=== PATIENT | female | born 1995 | race Caucasian/White ===

== ENCOUNTER 2017-07-28 05:58 | Inpatient (IN) | payer MEDICAID, OTHER ==
--- NOTE | 2017-07-27 20:53 | P.HPOB ---
History of Present Illness H&P Date: 07/27/17 Chief Complaint: Induction of labor This is a 21-year-old female 1 para 0 with an estimated date of confinement of 07/28/2017, estimated gestational age of 40-0/7 weeks, who presents to labor and delivery for induction of labor. She admits to good movement. She has been feeling irregular pressure and contractions. course has been complicated by some depression/anger symptoms. She was encouraged to see a counselor but did not do this yet. labs: History of chlamydia treated in December 2016. Test of cure-negative. Gonorrhea-negative HIV-nonreactive Toxoplasma-negative RPR-nonreactive Hepatitis B surface antigen-negative Rubella-immune Blood type-A+ Antibody screen-negative Random glucose-76 Hemoglobin-11.3 Obstetrical ultrasound-normal anatomy One hour Glucola-89 Group B streptococcus-negative Review of Systems Constitutional: Denies chills, Denies fever Eyes: denies blurred vision, denies pain Ears, nose, mouth and throat: Denies headache, Denies sore throat Cardiovascular: Denies chest pain, Denies shortness of breath Respiratory: Denies cough Gastrointestinal: Reports abdominal pain (Irregular contractions) Genitourinary: Reports pelvic pain, Reports Musculoskeletal: Reports low back pain Integumentary: Denies pruritus, Denies rash Neurological: Denies numbness, Denies weakness Psychiatric: Reports depression Past Medical History Past Medical History: Asthma History of Any Multi-Drug Resistant Organisms: None Reported Additional Past Surgical History / Comment(s): Bilateral toenail surgery Past Psychological History: Anxiety, Depression Smoking Status: Never smoker Past Alcohol Use History: None Reported Additional Past Alcohol Use History / Comment(s): She is a nonsmoker. She denies any medical marijuana, marijuana, street drug or alcohol use. Past Drug Use History: None Reported - Past Family History Father Additional Family Medical History / Comment(s): Father is age 42 with kidney problems. She has not seen her father since she was a baby. Mother Additional Family Medical History / Comment(s): Mother is age 36 with history of bipolar, hypertension, diabetes. Brother(s) Additional Family Medical History / Comment(s): She has 3 half-brothers with no major medical problems. She does not have any sisters. Medications and Allergies Home Medications Medication Instructions Recorded Confirmed Type No Known Home Medications [No 05/03/15 05/04/15 History Known Home Medications] Allergies Allergy/AdvReac Type Severity Reaction Status Date / Time No Known Allergies Allergy Verified 05/04/15 10:30 Exam Osteopathic Statement: *. No significant issues noted on an osteopathic structural exam other than those noted in the History and Physical/Consult. HEENT: Within normal limits Heart: Regular rate and rhythm Lungs: Clear to auscultation bilaterally Abdomen: Cervix: 1 cm/60-70%/-2 station heart tones: 140s by Doppler Extremities: Negative Homans Assessment and Plan (1) 40 weeks gestation of Status: Acute Code(s): Z3A.40 - 40 WEEKS GESTATION OF SNOMED Code( s): 33851782 Plan: Proceed with oxytocin induction of labor. Expectant management. Epidural anesthesia if desired.
[2017-07-28] MEDS ORDERED: TERBUTALINE 1 MG/ML VIAL SQ PRN (06:06)
[2017-07-28] MEDS ORDERED: LIDOCAINE 1% (PF) 10 MG/ML (30 ML SDV) SQ PRN (06:06)
[2017-07-28] MEDS ORDERED: OXYTOCIN 10 UNIT/ML 1 ML VIAL IM PRN (06:06)
[2017-07-28] MEDS ORDERED: LIDOCAINE 1% 20 ML VIAL (10MG/ML) FOR IV START INTRADERMA PRN (06:06)
[2017-07-28] MEDS ORDERED: METHYLERGONOVINE 0.2 MG/ML 1 ML AMP IM PRN (06:06)
[2017-07-28] MEDS ORDERED: CARBOPROST TROMETHAMINE 250 MCG/ML 1 ML AMP IM PRN (06:06)
[2017-07-28] MEDS ORDERED: OXYTOCIN 20 UNITS/1000 ML NS 1,000 ML IV SCH ×2 (06:06→18:28)
[2017-07-28 06:18] VITALS: RESP 16; BMI 27.4
[2017-07-28] MEDS: LACTATED RINGERS 1,000 ML IV SCH ×3 (06:18→14:00)
[2017-07-28 06:29] LABS: Basophils % (A) 0 %; Eosinophils # (A) 0.1 k/uL (0-0.7); Eosinophils % (A) 1 %; HGB 11.8 gm/dL (11.4-16.0); Lymphocytes % (A) 19 %; MCH 28.5 pg (25.0-35.0); MCHC 32.9 g/dL (31.0-37.0); MCV 86.5 fL (80.0-100.0); Mean Platelet Volume 6.7; Monocytes # (A) 0.7 k/uL (0-1.0); Monocytes % (A) 6 %; Neutrophils # (A) 7.5 k/uL (1.3-7.7); Neutrophils % (A) 72 %; Platelet Count 311 k/uL (150-450); RBC 4.15 m/uL (3.80-5.40); RDW 13.6 % (11.5-15.5); WBC 10.5 k/uL (4.0-11.0)
[2017-07-28] MEDS: BUTORPHANOL 1 MG/ML 1 ML VIAL IV PRN ×2 (10:16→12:08)
[2017-07-28] MEDS ORDERED: SODIUM CHLORIDE 0.9% 100 ML BAG ONE (13:48)
[2017-07-28] MEDS ORDERED: BUPIVACAINE (PF) 0.25% 30 ML VIAL ONE (13:48)
[2017-07-28] MEDS ORDERED: fentaNYL (PF) 50 MCG/ML 5 ML AMP ONE (13:48)
[2017-07-28] MEDS ORDERED: ZOLPIDEM 5 MG TAB PO PRN (18:28)
[2017-07-28] MEDS ORDERED: WITCH HAZEL 1 EACH MED..PAD TOPICAL PRN (18:28)
[2017-07-28] MEDS ORDERED: diphenhydrAMINE 50 MG/ML 1 ML VIAL IVP PRN ×2 (18:28)
[2017-07-28] MEDS ORDERED: ACETAMINOPHEN TAB 325 MG TAB PO PRN (18:28)
[2017-07-28] MEDS ORDERED: LANOLIN CREAM 5 GM TUBE TOPICAL PRN (18:28)
[2017-07-28] MEDS ORDERED: diphenhydrAMINE 50 MG CAP PO PRN (18:28)
[2017-07-28] MEDS ORDERED: HYDROCORTISONE 2.5% RECTAL CREAM 30 GM TUBE RECTAL PRN (18:28)
[2017-07-28] MEDS ORDERED: diphenhydrAMINE 25 MG CAP PO PRN (18:28)
[2017-07-28] MEDS ORDERED: BENZOCAINE/MENTHOL SPRAY 1 GM/SPRAY AEROSOL TOPICAL PRN (18:28)
[2017-07-28] MEDS ORDERED: SIMETHICONE 80 MG CHEWABLE PO PRN (18:28)
--- NOTE | 2017-07-28 18:37 | P.PROBDLV ---
Vaginal Delivery Note - . Vaginal Delivery Note: The patient progressed to complete dilation after oxytocin induction of labor and artificial rupture of membranes with clear fluid noted. Once reaching complete dilation, she began pushing. 's head came to a crown. With one further push, the infant's head delivered across the perineum followed by the anterior shoulder. Nose and mouth were bulb suctioned at the perineum. With one further push, the remainder the easily delivered and was placed on mother's abdomen. Brisk cry was noted immediately. Cord was clamped and cut and infant was taken to warmer for evaluation. A viable female was noted with scores of 9 at 1 minute and 9 at 5 minutes and infant weight of 7 lbs. 13 oz. Placenta delivered shortly thereafter, intact, with three- vessel cord. Uterus contracted well after oxytocin was given and uterine massage was carried out. Inspection of the perineum revealed a left periurethral laceration and a right vaginal wall laceration that extended onto the right vulvar area slightly. These areas were anesthetized with 1% lidocaine and then sutured with 3-0 Vicryl suture in 2-0 Vicryl suture in running locked fashion. Estimated blood loss is approximately 200 mL's. Both mother and are in stable condition.
[2017-07-28] MEDS: IBUPROFEN 600 MG TAB PO PRN (19:38)
[2017-07-28] MEDS: SENNOSIDES-DOCUSATE SODIUM 1 EACH TAB PO SCH (19:38)
[2017-07-29] MEDS: IBUPROFEN 600 MG TAB PO PRN ×2 (05:09→19:22)
[2017-07-29 06:58] LABS: Basophils % (A) 0 %; Eosinophils # (A) 0.1 k/uL (0-0.7); Eosinophils % (A) 0 %; HCT 30.7 % (34.0-46.0); HGB 10.1 gm/dL (11.4-16.0); Lymphocytes # (A) 1.7 k/uL (1.0-4.8); Lymphocytes % (A) 10 %; MCH 27.9 pg (25.0-35.0); MCHC 33.1 g/dL (31.0-37.0); MCV 84.5 fL (80.0-100.0); Monocytes # (A) 1.1 k/uL (0-1.0); Monocytes % (A) 7 %; Neutrophils # (A) 13.1 k/uL (1.3-7.7); Neutrophils % (A) 81 %; Platelet Count 278 k/uL (150-450); RBC 3.63 m/uL (3.80-5.40); RDW 13.8 % (11.5-15.5); WBC 16.2 k/uL (4.0-11.0)
[2017-07-29] MEDS: SENNOSIDES-DOCUSATE SODIUM 1 EACH TAB PO SCH (07:52)
--- NOTE | 2017-07-29 09:50 | P.DS ---
Providers Date of admission: 07/28/17 05:58 Expected date of discharge: 07/29/17 Attending physician: Nidhi Cisneros Primary care physician: Stated None - Discharge Diagnosis(es) (1) 40 weeks gestation of Current Visit: Yes Status: Acute Hospital Course: This is a 21-year-old female 1 para 0 at 40-0/7 weeks who presented for induction of labor. She underwent oxytocin induction of labor and delivered vaginally a viable female on 07/28/2017 with scores of 9 at 1 minute and 9 at 5 minutes and weight of 7 lbs. 13 oz. Her course has been essentially uncomplicated. Lochia is decreasing. Pain is fairly well controlled with ibuprofen. She is working on breast-feeding. Vital signs are stable. Abdomen is soft with fundus firm and nontender. Extremities show negative Homans. Impression is status post vaginal delivery day #1. Plan is to discharge home later today. Routine instructions are given. She is advised to call the office if she has any further questions or concerns prior to her appointment time. She will be given a prescription for ibuprofen. She states she has a breast pump at home. Procedures: Oxytocin induction of labor Spontaneous vaginal delivery of a viable female on 07/28/2017 Patient Condition at Discharge: Stable Plan - Discharge Summary New Discharge Prescriptions: New Ibuprofen [Motrin] 600 mg PO Q6HR PRN #60 tab PRN Reason: Mild Pain Or Fever >= 100.5 Discharge Medication List Ibuprofen [Motrin] 600 mg PO Q6HR PRN #60 tab 07/29/17 [Rx] Follow up Appointment(s)/Referral(s): Nidhi Cisneros DO [Doctor of Osteopathic Medicine] - 6 Weeks Activity/Diet/Wound Care/Special Instructions: Instructions 1. Do not begin any exercise program for 3 weeks. 2. Do not resume sexual relations for 3 weeks or longer if uncomfortable. 3. You may take tub baths or showers at any time. 4. You may use tampons if desired after 3 weeks. 5. Keep the area of episiotomy (stitches) clean and dry. 6. If you are not nursing, wear a good fitting, supportive bra during the day and limit fluid intake for at least 1 week to prevent breast engorgement. 7. Call the office, [phone], within the next week to make appointment for your 6 week checkup if it has not already been made. 8. Report any of the following occurrences to the doctor promptly: a. Heavy, excessive bleeding b. Chills, fever c. Burning or frequency of urination d. Pain or redness and breasts if nursing e. Increasing pain or swelling in episiotomy (stitches). In addition to the above instructions, the following additional should be followed: 1. No heavy lifting or straining (exercising) until after 6 week checkup. 2. Keep abdominal incision clean and dry: You may wear a dressing if more comfortable. 3. Make office appointment for 10 days after going home or as instructed by her doctor. Discharge Disposition: HOME SELF-CARE
[2017-07-29 16:59] VITALS: BP 90/62; PULSE 75; TEMP 98.4
== END 2017-07-29 19:40 | disposition home or self-care (01) | DRG 775 ==
LOC: 4FBP 05:58
PROVIDERS: ADMIT Obstetrics & Gynecology; ATTEND Obstetrics & Gynecology
PROC: 10907ZC Drainage of Amniotic Fluid, Therapeutic from Products of Conception, Via Natural or Artificial Opening (ICD-10-PCS; principal; 2017-07-28)
PROC: 3E0R3NZ Introduction of Analgesics, Hypnotics, Sedatives into Spinal Canal, Percutaneous Approach (ICD-10-PCS; principal; 2017-07-28)
PROC: 10E0XZZ Delivery of Products of Conception, External Approach (ICD-10-PCS; principal; 2017-07-28)
PROC: 0KQM0ZZ Repair Perineum Muscle, Open Approach (ICD-10-PCS; principal; 2017-07-28)
PROC: 3E033VJ Introduction of Other Hormone into Peripheral Vein, Percutaneous Approach (ICD-10-PCS; principal; 2017-07-28)
PROC: 0UQMXZZ Repair Vulva, External Approach (ICD-10-PCS; principal; 2017-07-28)
PROC: 00HU33Z Insertion of Infusion Device into Spinal Canal, Percutaneous Approach (ICD-10-PCS; principal; 2017-07-28)
DX: O48.0 Post-term pregnancy (principal); O71.4 Obstetric high vaginal laceration alone; Z37.0 Single live birth; Z3A.40 40 weeks gestation of pregnancy; O71.82 Other specified trauma to perineum and vulva; Z82.49 Family history of ischemic heart disease and other diseases of the circulatory system; Z83.3 Family history of diabetes mellitus
CPT/HCPCS: 85025